=== PATIENT | male | born 1970 | race African-American/Black ===

== ENCOUNTER 2016-10-10 23:12 | Emergency (ER) | payer OTHER ==
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
== END 2016-10-11 01:15 | disposition home or self-care (01) ==
LOC: CFTX 23:12 → CED 23:12 → CFTX 23:55
DX: S60.222A Contusion of left hand, initial encounter (principal); S50.01XA Contusion of right elbow, initial encounter; S80.211A Abrasion, right knee, initial encounter; F17.200 Nicotine dependence, unspecified, uncomplicated; V89.9XXA Person injured in unspecified vehicle accident, initial encounter; Y92.488 Other paved roadways as the place of occurrence of the external cause
CPT/HCPCS: 29125; 73080; 73130; 73562; 99283